=== PATIENT | female | born 1975 | race Caucasian/White ===

== ENCOUNTER 2023-09-05 12:15 | Emergency (ER) | payer OTHER, SELFPAY ==
--- NOTE | ~2023-09-05 | CT_ITS ---
EXAM: CT scan of the head and cervical spine. INDICATION: Reason for Exam fall w/ posterior head strike TECHNIQUE: A noncontrast CT scan was performed from the skull base to the vertex. A noncontrast CT scan of the cervical spine was performed from the base of the skull through T1 at 2.5 mm and 1.25 mm collimation. Coronal and sagittal reformats were obtained at the acquisition workstation. This CT examination was performed using dose optimization techniques as appropriate, variously including the following: *Automated exposure control *Adjustment of mA and/or kV according to patient size (this includes techniques or standardized protocols for targeted exams where dose is matched to indication/reason for exam; i.e. extremities or head) *Use of iterative reconstruction technique DLP: 698 and 373 mGy-cm COMPARISON: None FINDINGS: Head: There is no evidence of acute intracranial hemorrhage or territorial infarction. Ingram-white matter differentiation is preserved. No abnormal mass effect or midline shift. No extra-axial fluid collections. No abnormal attenuation is demonstrated within the brain parenchyma. The ventricles and sulcal spaces are proportional without hydrocephalus. Proportional prominence of the ventricles and sulcal spaces. No acute osseous or soft tissue abnormalities. The mastoid air cells and visualized portions of the paranasal sinuses are well aerated. Cervical Spine: The atlantooccipital and atlantoaxial articulations remain well aligned. Reversal of the normal cervical lordosis. Otherwise, there is anatomic alignment of the vertebral bodies and posterior elements. No evidence of acute fracture or subluxation. The vertebral body heights and disc spaces are notable for moderate disc space narrowing mid and lower cervical spine consistent with degenerative disc disease.. There is no prevertebral soft tissue swelling. The thyroid gland and remaining cervical soft tissues are normal in appearance. The lung apices demonstrate no abnormalities. CT/CT cervical spine wo IV con IMPRESSION: No acute intracranial pathology. No acute fracture subluxation cervical spine.
--- NOTE | ~2023-09-05 | XR_ITS ---
History: Pain status post fall. Exams: Left knee 2 views right knee 2 views lumbosacral spine 3 views right elbow 3 views right humerus 3 views FINDINGS: Right upper extremity shoulder and elbow: No deformity or dislocation. Joint spaces preserved. No elbow effusion. Radial head and neck intact. Bilateral knee imaging demonstrates no effusion. Joint spaces preserved. No deformity. Lumbosacral spine imaging images mild scoliosis convex left. No focal lesion or fracture. Minor endplate spurring consistent with early degenerative disc disease. XR/XR elbow RT 2V IMPRESSION: No fracture or dislocation. Mild degenerative disc disease in the lumbar spine.
--- NOTE | ~2023-09-05 | XR_ITS ---
History: Pain status post fall. Exams: Left knee 2 views right knee 2 views lumbosacral spine 3 views right elbow 3 views right humerus 3 views FINDINGS: Right upper extremity shoulder and elbow: No deformity or dislocation. Joint spaces preserved. No elbow effusion. Radial head and neck intact. Bilateral knee imaging demonstrates no effusion. Joint spaces preserved. No deformity. Lumbosacral spine imaging images mild scoliosis convex left. No focal lesion or fracture. Minor endplate spurring consistent with early degenerative disc disease. XR/XR humerus RT IMPRESSION: No fracture or dislocation. Mild degenerative disc disease in the lumbar spine.
--- NOTE | ~2023-09-05 | XR_ITS ---
History: Pain status post fall. Exams: Left knee 2 views right knee 2 views lumbosacral spine 3 views right elbow 3 views right humerus 3 views FINDINGS: Right upper extremity shoulder and elbow: No deformity or dislocation. Joint spaces preserved. No elbow effusion. Radial head and neck intact. Bilateral knee imaging demonstrates no effusion. Joint spaces preserved. No deformity. Lumbosacral spine imaging images mild scoliosis convex left. No focal lesion or fracture. Minor endplate spurring consistent with early degenerative disc disease. XR/XR knee LT 2V IMPRESSION: No fracture or dislocation. Mild degenerative disc disease in the lumbar spine.
--- NOTE | ~2023-09-05 | XR_ITS ---
History: Pain status post fall. Exams: Left knee 2 views right knee 2 views lumbosacral spine 3 views right elbow 3 views right humerus 3 views FINDINGS: Right upper extremity shoulder and elbow: No deformity or dislocation. Joint spaces preserved. No elbow effusion. Radial head and neck intact. Bilateral knee imaging demonstrates no effusion. Joint spaces preserved. No deformity. Lumbosacral spine imaging images mild scoliosis convex left. No focal lesion or fracture. Minor endplate spurring consistent with early degenerative disc disease. XR/XR lumbar spine 2-3V IMPRESSION: No fracture or dislocation. Mild degenerative disc disease in the lumbar spine.
--- NOTE | ~2023-09-05 | XR_ITS ---
History: Pain status post fall. Exams: Left knee 2 views right knee 2 views lumbosacral spine 3 views right elbow 3 views right humerus 3 views FINDINGS: Right upper extremity shoulder and elbow: No deformity or dislocation. Joint spaces preserved. No elbow effusion. Radial head and neck intact. Bilateral knee imaging demonstrates no effusion. Joint spaces preserved. No deformity. Lumbosacral spine imaging images mild scoliosis convex left. No focal lesion or fracture. Minor endplate spurring consistent with early degenerative disc disease. XR/XR knee RT 2V IMPRESSION: No fracture or dislocation. Mild degenerative disc disease in the lumbar spine.
[2023-09-05 12:30] VITALS: BP 133/86; BP 138/89; PULSE 79; PULSE 80; RESP 14; TEMP 36.6; O2SAT 100; BMI 26.9
[2023-09-05] MEDS: Acetaminophen 325 MG TABLET 650 MG PO (12:38)
--- NOTE | 2023-09-05 12:39 | ED_ITS ---
HPI - Fall General Chief Complaint: Fall Stated Complaint: MECHANICAL FALL Time Seen by Provider: 09/05/23 14:33 Source: patient and EMS Mode of arrival: EMS Limitations: no limitations History of Present Illness HPI Narrative: 47-year-old female with a history of hypertension presents the ER with multiple complaints after a slip and fall walking into work on Wednesday. Patient reports she fell backwards hitting her head with a positive loss of consciousness. Patient denies any AC therapy use. Patient reports she has a headache today, neck pain, bilateral knee pain, right elbow pain, back pain since injury. she also has some photophobia but denies any blurry vision. No nausea, vomiting, chest pain, shortness of breath, urinary changes, diarrhea, numbness/ tingling /weakness in the upper lower extremities, dizziness. Related Data Previous Rx's Medication Instructions Recorded cyclobenzaprine 10 mg tablet 10 mg PO TID PRN muscle spasm #15 09/05/23 tabs ibuprofen 600 mg tablet 600 mg PO Q6H PRN pain #30 tabs 09/05/23 lidocaine 5 % topical patch 1 patch topical DAILY #15 ea 09/05/23 (Lidoderm) Allergies Allergy/AdvReac Type Severity Reaction Status Date / Time prednisone [PREDNISONE] Allergy Severe ORAL Unverified 04/04/20 17:52 FORM-VOMITING Review of Systems Review of Systems: Yes all other systems are reviewed and are negative Constitutional: Constitutional: Reports no additional constitutional complaints, Denies body ache(s), Denies chills, Denies fever(s), Reports headache(s) and Denies weakness Eyes: Eyes: Reports no additional eye complaints, Denies change in vision and Reports photophobia ENT: Reports system reviewed and no additional complaints, except as documented, Denies dizziness, Reports headache(s), Denies nasal congestion, Denies nasal discharge and Reports neck pain Cardiovascular: Cardiovascular: Reports no additional cardiovascular complaints, Denies chest pain, Denies leg edema and Denies dyspnea Respiratory: Respiratory: Reports no additional respiratory complaints, Denies cough and Denies dyspnea Gastrointestinal: Gastrointestinal: Reports no additional gastrointestinal complaints, Denies abdominal pain, Denies diarrhea, Reports nausea and Denies vomiting Genitourinary: Genitourinary: Reports no additional female genitourinary complaints and Denies urinary incontinence Musculoskeletal: Musculoskeletal: Reports no additional musculoskeletal complaints, Reports back pain, Reports arthralgias, Denies joint swelling, Reports neck pain, Denies numbness and Denies tingling Integumentary/Breasts: Skin/Breast: Reports system reviewed and no additional complaints, except as docu and Denies rash Neurologic: Reports system reviewed and no additional complaints, except as do cumented, Denies Abnormal speech present, Denies dizziness, Reports headache(s), Denies numbness, Denies tingling and Denies weakness [facility] Past Medical History Attestation statement: The following information was validated with the patient. Source: old records reviewed and nursing notes reviewed Social History Social History Smoked in Last 30 Days: Yes Use of substances other than those prescribed or required for medical reasons: No Advance Directives: No Advance Directives Information Provided: No Patient : No Physical Exam Vital Signs: Vital Signs: Last Vital Signs Temp 96.8 F 09/05/23 14:44 Pulse 76 09/05/23 14:44 Resp 17 09/05/23 14:44 BP 115/72 09/05/23 14:44 Pulse Ox 100 09/05/23 14:44 O2 Del Method Room Air 09/05/23 14:44 BMI result Body Mass Index 26.9 Const: General: cooperative, healthy appearing, comfortable and no acute distress Orientation/consciousness: patient oriented x3 Limitations: no limitations HEENT: Other: no hemotympanum Head: Yes normal to inspection, No Lee's sign and No raccoon eyes Ears: hearing grossly normal bilaterally and TM's normal bilaterally General nose exam: Normal external nose present Face and sinus: Yes normal facial exam Mouth: Normal oral and palatal mucosa present Throat: Yes posterior oropharynx normal, Yes tonsils normal and Yes uvula midline Eyes: General: appearance normal, both eyes and all related structures Pupils: Equal, round and reactive pupils present Direct Ophthalmoscopy: photophobia Neck: Other: +cervical midline tenderness with no neri p offs or deformities Neck: Yes normal visual inspection Chest: Chest palpation & inspection: normal inspection of the chest Resp: Effort & Inspection: normal respiratory effort Auscultation: clear to auscultation bilaterally Cardio: Rate: regular rate Rhythm: regular rhythm Peripheral pulses: Peripheral pulses 2+ throughout GI: Inspection: Yes normal to inspection Palpation (GI): Soft to palpation and nontender Auscultation: normal bowel sounds Back/Spine/Pelvis: Other: TTP to lumbar mid spine with no step offs or deformities and left buttocks Thoracic/Lumbar Spine: thoracic and lumbar spine normal to inspection Skin: General skin exam: no rashes or lesions noted Neuro: General: patient oriented x3, moves all extremities, no focal motor deficits and normal sensation to monofilament Cranial nerves: Yes CN's II-XII intact bilaterally, Yes Equal, round and reactive pupils present, Yes Bilaterally intact EOM present, Yes Nystagmus not present, Yes Normal facial strength present and Yes Midline tongue present Cognition (Neuro): normal cognition Speech: No Abnormal speech present Gait exam (Neuro): Normal gait present Motor exam (neuro): 5/5 motor strength present throughout Sensory Exam: Normal double simultaneous stimulation for sensation Extrem: Other: Small area of ecchymosis noted over right lateral elbow with full range of motion both passively/actively. CMS intact distally. TTP bilateral anterior knees with FROM. CMS intact distally. General: Yes normal to inspection Course Course Course Narrative: RME:? 47 yo female w/ hx of HTN here vai EMS for eval of headache, neck pain, right elbow pain, and b/l knee pain s/p mechanical fall 2d ago. reports slipping backward on ice in front of her work, hitting the back of her head. fall was unwitnessed. +LOC. no thinners. reports being on the ground for only a few minutes before she was able to stand and ambulate herself. 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 Sent home and has been home for 2 days. ambulating independently with pain to bilateral knees on bearing weight. Seen at urgent care this morning who called EMS to transport here. received zofran en route. imaging ordered. tylenol given Full HPI, ROS and PE to be performed by the primary ED provider. Reevaluation(s) Reevaluation #1: reviewed negative imaging with patient. She is up and ambulatory. Normal neuro exam with no focal deficits, tolerating p.o.. Reviewed head injury care at home. Reviewed worrisome signs and symptoms of when to return to the emergency room. Comfortable plan for discharge home. Medications Administered Discontinued Medications Generic Name Dose Route Start Last Admin Trade Name Freq PRN Reason Stop Dose Admin Acetaminophen 650 mg 09/05/23 12:35 09/05/23 12:38 Acetaminophen 325 Mg Tablet PO 09/05/23 12:36 650 mg ONCE ONE Administration Medical Decision Making Medical Decision Making MDM Narrative: 47-year-old female with a history of hypertension presents the ER with multiple complaints after a slip and fall walking into work on Wednesday. Patient reports she fell backwards hitting her head with a positive loss of consciousness. Patient denies any AC therapy use. Patient reports she has a headache today, neck pain, bilateral knee pain, right elbow pain, back pain since injury. she also has some photophobia but denies any blurry vision. No nausea, vomiting, chest pain, shortness of breath, urinary changes, diarrhea, numbness/ tingling /weakness in the upper lower extremities, dizziness. Normal neuro exam with no focal deficitis. Various orthopedic complaints with TTP/areas of ecchymosis with FROM of affected joints. Will check ct head/cervical spine, x-rays of bilateral knees/right elbow and lumbar spine. Differential Diagnosis Differential Diagnoses: The differential diagnosis associated with the presentation includes Contusion, fracture, dislocation, low concern for vascular injury Concussion, low suspicion for basilar skull fracture, intracranial hemorrhage Admission/Observation Consideration of admission/observation: Escalation of care including admission/observation considered patient with head strike with complaints of headache, photophobia with loss of consciousness with a negative CT of the head 2 days ago with low suspicion for intracranial hemorrhaging requiring additional imaging and or transfer for trauma consultation Independent Interpretation I performed an independent interpretation of an: Plain X-Ray and CT Scan Interpretation: I independently viewed the x-ray and the CT scan agree with the radiology report Radiology Impression Discussion of test interpretation with radiology: I have reviewed the radiologist's reading. Radiologist Impression: [address] [address] [address] Scan Report Signed Patient: Rodney Martinez MR#: [id number] : 1975 Acct:[id number] Age/Sex: 47 / F ADM Date: 09/05/23 Loc: HO.ED Attending Dr: Ordering Physician: Maribel Moore Date of Service: 09/05/23 Procedure(s): CT head/brain wo IV con Accession Number(s): [id number] cc: Maribel Moore~ EXAM: CT scan of the head and cervical spine. INDICATION: Reason for Exam fall w/ posterior head strike TECHNIQUE: A noncontrast CT scan was performed from the skull base to the vertex. A noncontrast CT scan of the cervical spine was performed from the base of the skull through T1 at 2.5 mm and 1.25 mm collimation. Coronal and sagittal reformats were obtained at the acquisition workstation. This CT examination was performed using dose optimization techniques as appropriate, variously including the following: *Automated exposure control *Adjustment of mA and/or kV according to patient size (this includes techniques or standardized protocols for targeted exams where dose is matched to indication/reason for exam; i.e. extremities or head) *Use of iterative reconstruction technique DLP: 698 and 373 mGy-cm COMPARISON: None FINDINGS: Head: There is no evidence of acute intracranial hemorrhage or territorial infarction. Ingram-white matter differentiation is preserved. No abnormal mass effect or midline shift. No extra-axial fluid collections. No abnormal attenuation is demonstrated within the brain parenchyma. The ventricles and sulcal spaces are proportional without hydrocephalus. Proportional prominence of the ventricles and sulcal spaces. No acute osseous or soft tissue abnormalities. The mastoid air cells and visualized portions of the paranasal sinuses are well aerated. Cervical Spine: The atlantooccipital and atlantoaxial articulations remain well aligned. Reversal of the normal cervical lordosis. Otherwise, there is anatomic alignment of the vertebral bodies and posterior elements. No evidence of acute fracture or subluxation. The vertebral body heights and disc spaces are notable for moderate disc space narrowing mid and lower cervical spine consistent with degenerative disc disease.. There is no prevertebral soft tissue swelling. The thyroid gland and remaining cervical soft tissues are normal in appearance. The lung apices demonstrate no abnormalities. CT/CT head/brain wo IV con IMPRESSION: No acute intracranial pathology. No acute fracture subluxation cervical spine. [address] [address] XRay Report Signed Patient: Rodney Martinez MR#: [id number] : 1975 Acct:[id number] Age/Sex: 47 / F ADM Date: 09/05/23 Loc: HO.ED Attending Dr: Ordering Physician: Maribel Moore Date of Service: 09/05/23 Procedure(s): XR elbow RT 2V Accession Number(s): [id number] cc: Maribel Moore~ History: Pain status post fall. Exams: Left knee 2 views right knee 2 views lumbosacral spine 3 views right elbow 3 views right humerus 3 views FINDINGS: Right upper extremity shoulder and elbow: No deformity or dislocation. Joint spaces preserved. No elbow effusion. Radial head and neck intact. Bilateral knee imaging demonstrates no effusion. Joint spaces preserved. No deformity. Lumbosacral spine imaging images mild scoliosis convex left. No focal lesion or fracture. Minor endplate spurring consistent with early degenerative disc disease. XR/XR elbow RT 2V IMPRESSION: No fracture or dislocation. Mild degenerative disc disease in the lumbar spine. Independent Historian Clinical information obtained from an independent historian. History obtained from or confirmed by: EMS Tests considered The following testing was considered but not selected: see discussion above Prescription Management I considered prescription management with: Pain Medication Chronic Conditions Patient?s care impacted by: Hypertension Discharge Plan Discharge Clinical Impression: Concussion without loss of consciousness, Cervical strain, Back contusion, Contusion of knee, left, Contusion of knee, right, Contusion of elbow, right Patient Disposition: Home, Self-Care Instructions: Cervical Strain (ED), Concussion (ED), Contusion in Adults (ED) Additional Instructions: your x-rays and CT scan are reassuring You likely have a concussion. Please limit screen time. Get plenty of brain rest. Take the medications as prescribed. Apply heat or ice to the affected area. Follow-up with primary care doctor for any continued symptoms. Prescriptions: New cyclobenzaprine 10 mg tablet 10 mg PO TID PRN (Reason: muscle spasm) Qty: 15 0RF ibuprofen 600 mg tablet 600 mg PO Q6H PRN (Reason: pain) Qty: 30 0RF lidocaine [Lidoderm] 5 % adhesive patch,medicated 1 patch topical DAILY Qty: 15 0RF Rx Instructions: leave on most painful area for up to 12 hrs Stand Alone Forms: Work/School Release Interventions: ED Discharge Assessment Last Done: 09/05/23 15:04 Discharge Date/Time: 09/05/23 15:04
[2023-09-05 14:44] VITALS: BP 115/72; PULSE 76; RESP 17; TEMP 36; O2SAT 100
== END 2023-09-05 15:04 | disposition home or self-care (01) ==
PROVIDERS: Emergency Provider Emergency Medicine; PCP Internal Medicine
DX: S06.0X0A Concussion without loss of consciousness, initial encounter (principal); S13.4XXA Sprain of ligaments of cervical spine, initial encounter; S80.02XA Contusion of left knee, initial encounter; S80.01XA Contusion of right knee, initial encounter; S50.02XA Contusion of left elbow, initial encounter; S50.01XA Contusion of right elbow, initial encounter; M54.2 Cervicalgia; R51.9 Headache, unspecified; W01.10XA Fall on same level from slipping, tripping and stumbling with subsequent striking against unspecified object, initial encounter; Y93.9 Activity, unspecified; Y92.9 Unspecified place or not applicable; Y99.0 Civilian activity done for income or pay
CPT/HCPCS: 70450; 72100; 72125; 73060; 73070; 73560; 99284

== ENCOUNTER 2024-08-05 21:48 | Emergency (ER) | payer OTHER, SELFPAY ==
[2024-08-05 22:07] VITALS: BP 150/90; PULSE 142; O2SAT 99
[2024-08-05 22:21] VITALS: BP 138/94; PULSE 104; RESP 18; TEMP 37.6; O2SAT 98; BMI 28.3
--- OUTSIDE RECORDS SUMMARY | 2024-08-05 22:22 | XMS_ITS | Continuity of Care Document ---
Author Name [facility] Organization [facility] Care Team Providers Care Senior Oracle Pl Sql Developer Name Role Phone [facility] Unavailable Unavailable Immunizations Combined list of available immunizations from the Department of Defense and Veterans Affairs facilities. Immunization Series Date Given Administered By Site Reaction Lot Number [id number] Drug Electroneurodiagnostic Technologist Status Comments Source COVID-19 ([employer]), MRNA, LNP-S, PF, 30 MCG/0.3 ML DOSE 2 2020 208 complet ed PFR; [id number]; [facility] [place] [facility] COVID-19 (PFIZER), MRNA, LNP-S, PF, 30 MCG/0.3 ML DOSE 1 2020 208 complet ed PFR; [id number]; [facility]
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
[2024-08-05] MEDS: LORazepam 1 MG TABLET 2 MG PO (23:01)
[2024-08-05 23:31] LABS: Basophils Percent Auto 0.4 % (0-2); Eosinophils Percent Auto 0.3 % (0-4); Hematocrit 37.2 % (37.0-47.0); Hemoglobin 12.9 g/dl (12.0-16.0); Imm Gran Abs Auto 0.03 X10*3/uL (0.00-0.03); Imm Gran Pct Auto 0.4 % (0.0-0.4); Lymphocytes Absolute Auto 1.6 X10*3/uL (1.2-4.9); Lymphocytes Percent Auto 19.8 % (20-40); MANUAL DIFF FLAG NO; Mean Corpuscular HGB Conc 34.7 g/dl (31.0-35.0); Mean Corpuscular Volume 83.6 fL (80.0-98.0); Mean Platelet Volume 8.6 fL (9.4-12.3); Monocytes Absolute Auto 0.4 X10*3/uL (0.1-1.2); Monocytes Percent Auto 4.4 % (2-11); Neutrophils Absolute Auto 5.9 x10*3/uL (2.0-8.3); Neutrophils Percent Auto 74.7 % (45-73); Platelet Count 188 X10*3/uL (160-400); Red Blood Count 4.45 X10*6/uL (4.20-5.50); Red Cell Distribution Width 14.6 % (11.0-16.0); White Blood Count 7.9 X10*3/uL (4.8-10.8)
[2024-08-05 23:48] LABS: Alanine Aminotransferase 28 U/L (0-31); Albumin Level 3.8 g/dL (3.5-5.0); Alkaline Phosphatase 119 U/L (39-117); Anion Gap 12 (12-20); Aspartate Amino Transferase 36 U/L (5-31); Bilirubin Direct < 0.2 mg/dL (0.0-0.5); Bilirubin Total 0.1 mg/dL (0.0-1.0); Blood Urea Nitrogen 7 mg/dL (9-16); Calcium 8.4 mg/dL (8.4-10.2); Carbon Dioxide 28 mmol/L (22-29); Chloride 98 mmol/L (96-108); Creatinine Clr Calc Pharmacy 78.2; Estimated Glomerular Filt Rate > 60; Ethanol 260 mg/dL; Glucose Random 144 mg/dL (60-115); Potassium 3.4 mmol/L (3.3-5.1); Sodium 135 mmol/L (135-145); Total Protein 7.2 g/dL (6.5-8.0)
--- NOTE | 2024-08-06 06:44 | PC.NURSE ---
meeting with care team at this time
[2024-08-06 07:19] LABS: Appearance Urine Clear; Color Urine Yellow; Glucose Urine UA Negative (Negative); Leukocyte Esterase Urine Negative (Negative); Nitrite Urine Negative (Negative); Urine Blood Negative (Negative); Urine Ketones Trace mg/dL (Negative); Urine Protein Negative (Neg-Trace)
[2024-08-06 07:20] LABS: UPreg QC Valid YES; Urine Pregnancy NEGATIVE (NEGATIVE)
[2024-08-06 07:21] VITALS: BP 118/82; PULSE 117; RESP 18; TEMP 36.4; O2SAT 98
[2024-08-06] MEDS: Omeprazole 20 MG CAPSULE.DR PO (07:22)
[2024-08-06] MEDS: Cyanocobalamin (Vitamin B-12) 1,000 MCG TABLET 1000 MCG PO (07:23)
[2024-08-06] MEDS: Metoprolol Succinate ER 50 MG TAB.ER.24H PO (07:23)
[2024-08-06] MEDS: hydroCHLOROthiazide 25 MG TABLET PO (07:23)
[2024-08-06 07:58] LABS: Amphetamine Screen Urine Not Detected (Not Detect); Barbiturates, Urine Not Detected (Not Detect); Benzodiazepines Screen Urine Not Detected (Not Detect); Buprenorphine Scr Not Detected (Not Detect); Cannabinoid Screen Urine Not Detected (Not Detect); Cocaine Screen Urine Not Detected (Not Detect); Fentanyl, urine Not Detected (Not Detect); Methadone Screen, Urine Not Detected (Not Detect); Opiate Screen Urine Not Detected (Not Detect); Oxycodone Screen Urine Not Detected (Not Detect); Phencyclidine Screen Urine Not Detected (Not Detect)
[2024-08-06 10:01] VITALS: BP 118/82; PULSE 110; RESP 18; TEMP 36.4; O2SAT 98
== END 2024-08-06 10:01 | disposition home or self-care (01) ==
PROVIDERS: Emergency Provider Emergency Medicine; PCP Internal Medicine
DX: F10.129 Alcohol abuse with intoxication, unspecified (principal); Y90.8 Blood alcohol level of 240 mg/100 ml or more; F29 Unspecified psychosis not due to a substance or known physiological condition; Z51.81 Encounter for therapeutic drug level monitoring; Z79.899 Other long term (current) drug therapy
CPT/HCPCS: 36415; 80048; 80076; 80307; 81003; 81025; 85025; 99284; S9485

== ENCOUNTER 2025-02-03 16:31 | Emergency (ER) | payer OTHER, SELFPAY ==
--- NOTE | ~2025-02-03 | XR_ITS ---
CLINICAL HISTORY: laceration 3 views left hand Comparison: None Findings: No fractures, subluxations or dislocations. No periostitis or bony destruction. Mild joint space narrowing of the interphalangeal joints. No marginal erosions or overhanging osteophytes. Ulnar styloid preserved. Osteopenia. No soft tissue defects or soft tissue gas. Carpal bones unremarkable. No radiopaque foreign body. Impression: 1. No acute osseous abnormalities. This document has been electronically signed by: Jonh Irving MD on 02/03/2025 17:25:19
[2025-02-03 16:38] VITALS: BP 150/76; PULSE 75; RESP 16; TEMP 36.6; O2SAT 100; BMI 27.6
--- NOTE | 2025-02-03 17:33 | ED.WOUNDLAC ---
HPI - Wound/Laceration General Chief Complaint: Wound/Laceration Stated Complaint: left hand lac Time Seen by Provider: 02/03/25 17:21 Source: patient Mode of arrival: ambulatory Limitations: no limitations History of Present Illness ED Provider: Desirae Santamaria PA-C HPI narrative: 49-year-old right-hand dominant female with medical history of hypertension presents to the ED after cutting her left hand with a knife after trying to open juice. Patient states her right hand is weak after elbow surgery done on 11/08 and was unable to control the knife while opening juice. Patient reports the knife was clean, states she has had her last tetanus shot 8 years ago. Related Data Home Medications ?Medication ?Instructions ?Recorded ?Confirmed cyanocobalamin (vitamin B-12) 1,000 mcg PO DAILY 08/06/24 08/06/24 1,000 mcg tablet ergocalciferol (vitamin D2) 1,250 1,250 mcg PO QWEEK 08/06/24 08/06/24 mcg (50,000 unit) capsule hydrochlorothiazide 25 mg tablet 25 mg PO DAILY 08/06/24 08/06/24 metoprolol succinate 50 mg 50 mg PO DAILY 08/06/24 08/06/24 tablet,extended release 24 hr pantoprazole 40 mg tablet,delayed 40 mg PO DAILY 08/06/24 08/06/24 release sertraline 50 mg tablet mg 08/06/24 Previous Rx's ?Medication ?Instructions ?Recorded cyclobenzaprine 10 mg tablet 10 mg PO TID PRN muscle spasm #15 09/05/23 tabs ibuprofen 600 mg tablet 600 mg PO Q6H PRN pain #30 tabs 09/05/23 lidocaine 5 % topical patch 1 patch topical DAILY #15 ea 09/05/23 (Lidoderm) Allergies Allergy/AdvReac Type Severity Reaction Status Date / Time amlodipine Allergy Swelling Verified 02/03/25 16:41 Review of Systems Review of Systems: CONST: Negative for fever, body aches and chills. HENT: Negative for neck pain/stiffness, headache, congestion, sore throat, swelling. EYES: Negative for discharge/pain or vision changes. RESP: Negative for cough/hemoptysis and shortness of breath. CV: Negative chest pain, difficulty breathing, palpitations. ABD: Negative pain, nausea, vomiting. : Negative increase frequency, dysuria, blood in urine or stool. MUSC: Negative for muscle aches, edema. SKIN: Negative rash, lesions/sores. POS laceration of L hand NEURO: Negative headache, dizziness, weakness. Yes all other systems are reviewed and are negative [facility] Social History Social History Advance Directives: No Advance Directives Information Provided: No Do you have a plan to hurt others: No Plan Physical Exam Vital Signs: Vital Signs: Last Vital Signs Temp 97.8 F 02/03/25 16:38 Pulse 75 02/03/25 16:38 Resp 16 02/03/25 16:38 BP 150/76 H 02/03/25 16:38 Pulse Ox 100 02/03/25 16:38 O2 Del Method Room Air 02/03/25 16:38 BMI result Body Mass Index 27.6 GENERAL APPEARANCE: ?AxOx4, generally well-appearing, no acute distress. HEENT: ?NC, AT. MMM. EOMI, clear conjunctiva, oropharynx clear. NECK: ?Supple without lymphadenopathy.? No stiffness or restricted ROM. HEART:? Normal rate and regular rhythm, normal S1/S1, no m/r/g LUNGS:? CTAB, moving air well. No crackles or wheezes are heard. EXTREMITIES: ?Without cyanosis, clubbing or edema. Left hand with approximate 1 in laceration of the intravenous area between thumb and index finger, light bleeding. Strength 5/5, radial pulses 2+, SILT NEUROLOGICAL: ?Grossly nonfocal. Alert and oriented, moving all 4 extremities. Observed to ambulate with normal gait. Skin: ?Warm and dry without any rash. Medications Administered Discontinued Medications Generic Name Dose Route Start Last Admin Trade Name Freq PRN Reason Stop Dose Admin Acetaminophen 975 mg 02/03/25 17:39 02/03/25 17:57 Acetaminophen 325 Mg Tablet PO 02/03/25 17:40 975 mg ONCE ONE Administration Lidocaine HCl 5 ml 02/03/25 17:39 02/03/25 18:00 Lidocaine Hcl 1 % Mpf 5 Ml Vial SUBCUT 02/03/25 17:40 5 ml ONCE ONE Administration Medical Decision Making Medical Decision Making MDM Narrative: 49-year-old right-hand dominant female with medical history of hypertension presents to the ED after cutting her left hand with a knife after trying to open juice. Patient states her right hand is weak after elbow surgery done on 11/08 and was unable to control the knife while opening juice. Patient reports the knife was clean, states she has had her last tetanus shot 8 years ago. VSS, in no acute distress, nontoxic appearing. Physical exam benign, lungs clear to auscultation bilaterally, cardiac exam with normal rate rhythm no murmurs/rubs/gallops. Left hand with approximate 1 in linear laceration of the intravenous area between thumb and index finger, light bleeding, no purulent drainage, no ecchymosis, no edema- less likely hematoma/cellulitis. Strength 5/5, radial pulses 2+, SILT, patient able to make full fist, opposition intact- less likley tendon involvement, no radicular symptoms. Patient requesting Tylenol for pain. Will medicate with 975 mg p.o. Tylenol. Patient requiring laceration repair. Differential Diagnosis Differential Diagnoses: The differential diagnosis associated with the presentation includes Laceration Hematoma Tendon involvement Cellulitis Admission/Observation Consideration of admission/observation: Escalation of care including admission/observation considered External Record Review External record reviewed: Inpatient record, Office record and Outpatient record Chronic Conditions Patient?s care impacted by: Hypertension Procedures Laceration Laceration 1: Site: hand (L hand webbing between thumb and index finger ) Side (If applicable): left Size (cm): 2 Description: linear Depth: simple, single layer Local Anesthetic: lidocaine 1% Amount of anesthesia used (mL): 5 Pre-repair: irrigated extensively and deep structures intact Skin layer closed with: nylon Size (cm): 5-0 Number of sutures: 4 Discharge Plan Discharge Clinical Impression: Laceration Patient Disposition: Home, Self-Care Additional Instructions: You were evaluated in the emergency department after sustaining laceration to the left hand after cutting juice open with a knife. X-ray imaging did not reveal any retained foreign body. You were given 975 mg of Tylenol in the department for pain. Your laceration was irrigated with sterile saline and iodine, the wound was injected with lidocaine for numbing. I placed 4 stitches in the webbing of your left thumb and index finger. Please follow up with your PCP to ensure your improvement. Please keep the dressing on the hand for 24 hours. Do not get wet or swim in pools, or fresh bodies of water for the next 7 days. You can come back to the ED or to urgent care in 10 days for removal of the sutures. Please return to the ED if you experience fever over 100.4, drainage from the wound, bleeding from the wound, increased pain around the wound, pain or difficulty moving the left hand. Or any other new/worsening/concerning symptoms. Prescriptions: No Action metoprolol succinate 50 mg tablet extended release 24 hr 50 mg PO DAILY cyanocobalamin (vitamin B-12) 1,000 mcg tablet 1,000 mcg PO DAILY pantoprazole 40 mg tablet,delayed release (DR/EC) 40 mg PO DAILY hydrochlorothiazide 25 mg tablet 25 mg PO DAILY ergocalciferol (vitamin D2) 1,250 mcg (50,000 unit) capsule 1,250 mcg PO QWEEK sertraline 50 mg tablet cyclobenzaprine 10 mg tablet 10 mg PO TID PRN (Reason: muscle spasm) Qty: 15 0RF ibuprofen 600 mg tablet 600 mg PO Q6H PRN (Reason: pain) Qty: 30 0RF lidocaine [Lidoderm] 5 % adhesive patch,medicated 1 patch topical DAILY Qty: 15 0RF Rx Instructions: leave on most painful area for up to 12 hrs Print Language: Maldivian
[2025-02-03] MEDS: Lidocaine HCl 1 % MPF 5 ML VIAL SUBCUT (18:00)
[2025-02-03 18:48] VITALS: BP 150/76; PULSE 75; RESP 16; TEMP 36.6; O2SAT 100
== END 2025-02-03 18:48 | disposition home or self-care (01) ==
PROVIDERS: Emergency Provider Emergency Medicine; PCP Internal Medicine
DX: S61.412A Laceration without foreign body of left hand, initial encounter (principal); W26.0XXA Contact with knife, initial encounter; M79.642 Pain in left hand; Y93.9 Activity, unspecified; Y92.9 Unspecified place or not applicable; Y99.9 Unspecified external cause status; I10 Essential (primary) hypertension; Z79.899 Other long term (current) drug therapy
CPT/HCPCS: 12001; 73120; 99284; J2003

== ENCOUNTER → 2025-02-03 16:50 | Outpatient (BNV) | payer OTHER, SELFPAY | PROVIDERS: Emergency Provider Emergency Medicine; PCP Internal Medicine; Visit Provider Radiology Diagnostic Radiology | DX: S61.412A Laceration without foreign body of left hand, initial encounter (principal) | CPT/HCPCS: 73120 ==

== ENCOUNTER 2025-02-13 19:08 | Emergency (ER) | payer OTHER, SELFPAY ==
--- OUTSIDE RECORDS SUMMARY | 2020-10-28 10:15 | XMS_ITS | Continuity of Care Document ---
Author Name [facility] Organization [facility] Care Team Providers Care Business Partner Name Role Phone [facility] Unavailable Unavailable Immunizations Combined list of available immunizations from the Department of Defense and Veterans Affairs facilities. Immunization Series Date Given Administered By Site Reaction Lot Number [id number] Drug Jackaroo Status Comments Source COVID-19 ([employer]right[employer]), MRNA, LNP-S, PF, 30 MCG/0.3 ML DOSE 2 2020 208 complet ed PFR; [id number]; [facility] COVID-19 (PFIZER), MRNA, LNP-S, PF, 30 MCG/0.3 ML DOSE 1 2020 208 complet ed PFR; [id number]; [facility]
[2025-02-13 19:44] VITALS: BP 111/71; PULSE 77; RESP 18; TEMP 36.8; O2SAT 97; BMI 25.9
--- NOTE | 2025-02-13 19:52 | ED.WOUNDLAC ---
HPI - Wound/Laceration General Chief Complaint: Skin/Abscess/Foreign Body Stated Complaint: Suture removal Time Seen by Provider: 02/13/25 19:52 Source: patient Mode of arrival: ambulatory Limitations: no limitations History of Present Illness ED Provider: Zenia Wright NP HPI narrative: Patient is a 49-year-old female who presents emergency department for suture removal from the left hand after an accidental laceration 10 days ago. Denies fevers, chills, pus-like drainage, redness, swelling. Related Data Home Medications ?Medication ?Instructions ?Recorded ?Confirmed cyanocobalamin (vitamin B-12) 1,000 mcg PO DAILY 08/06/24 08/06/24 1,000 mcg tablet ergocalciferol (vitamin D2) 1,250 1,250 mcg PO QWEEK 08/06/24 08/06/24 mcg (50,000 unit) capsule hydrochlorothiazide 25 mg tablet 25 mg PO DAILY 08/06/24 08/06/24 metoprolol succinate 50 mg 50 mg PO DAILY 08/06/24 08/06/24 tablet,extended release 24 hr pantoprazole 40 mg tablet,delayed 40 mg PO DAILY 08/06/24 08/06/24 release sertraline 50 mg tablet mg 08/06/24 Previous Rx's ?Medication ?Instructions ?Recorded cyclobenzaprine 10 mg tablet 10 mg PO TID PRN muscle spasm #15 09/05/23 tabs ibuprofen 600 mg tablet 600 mg PO Q6H PRN pain #30 tabs 09/05/23 lidocaine 5 % topical patch 1 patch topical DAILY #15 ea 09/05/23 (Lidoderm) Allergies Allergy/AdvReac Type Severity Reaction Status Date / Time amlodipine Allergy Swelling Verified 02/13/25 19:52 Review of Systems Review of Systems: Yes all other systems are reviewed and are negative PMFSH Past Medical History Attestation statement: The following information was validated with the patient. Source: old records reviewed Social History Social History Advance Directives: No Advance Directives Information Provided: No Physical Exam Exam: Exam: Appearance: Alert.?Oriented to person, place and time. No acute distress.?Normal affect. CVS: Heart sounds normal. Normal heart rate and rhythm.? Pulses normal.?? Respiratory: No respiratory distress.? Lung sounds clear to auscultation bilaterally??? Skin: Skin warm and dry.? Normal skin color.? Healed laceration to the interdigital space between left thumb and 2nd digit. No erythema. No warmth. No swelling. Full range of motion to the digits. Neuro: Moves all extremities spontaneously. Sensation intact bilaterally.Ambulates with normal steady gait. Vital Signs: Vital Signs: Last Vital Signs Temp 98.2 F 02/13/25 20:17 Pulse 77 02/13/25 20:17 Resp 18 02/13/25 20:17 BP 111/71 02/13/25 20:17 Pulse Ox 97 02/13/25 20:17 O2 Del Method Room Air 02/13/25 20:17 BMI result Body Mass Index 25.9 Medical Decision Making Medical Decision Making MDM Narrative: Patient is a 49-year-old female who presents emergency department for suture removal as per HPI. Four sutures were removed without complication. No evidence of cellulitis. Full range of motion to the hand/digits. Stable for discharge home External Record Review External record reviewed: Outpatient record Discharge Plan Discharge Clinical Impression: Laceration of hand Qualifiers: Laterality: left Patient Disposition: Home, Self-Care Additional Instructions: Sutures were removed today without complication. You may wash the hand with warm water and mild non scented soap. As discussed, part of the dried skin surrounding this area will come off eventually on its own. Utilize a moisturizer. Prescriptions: No Action metoprolol succinate 50 mg tablet extended release 24 hr 50 mg PO DAILY cyanocobalamin (vitamin B-12) 1,000 mcg tablet 1,000 mcg PO DAILY pantoprazole 40 mg tablet,delayed release (DR/EC) 40 mg PO DAILY hydrochlorothiazide 25 mg tablet 25 mg PO DAILY ergocalciferol (vitamin D2) 1,250 mcg (50,000 unit) capsule 1,250 mcg PO QWEEK sertraline 50 mg tablet cyclobenzaprine 10 mg tablet 10 mg PO TID PRN (Reason: muscle spasm) Qty: 15 0RF ibuprofen 600 mg tablet 600 mg PO Q6H PRN (Reason: pain) Qty: 30 0RF lidocaine [Lidoderm] 5 % adhesive patch,medicated 1 patch topical DAILY Qty: 15 0RF Rx Instructions: leave on most painful area for up to 12 hrs Referrals: José Manuel Whitman III, MD [Primary Care Provider, Medical] Interventions: ED Discharge Assessment Last Done: 02/13/25 20:17 Discharge Date/Time: 02/13/25 20:19 Print Language: Thai
[2025-02-13 20:17] VITALS: BP 111/71; PULSE 77; RESP 18; TEMP 36.8; O2SAT 97
== END 2025-02-13 20:19 | disposition home or self-care (01) ==
PROVIDERS: Emergency Provider Internal Medicine; PCP Internal Medicine
DX: Z48.02 Encounter for removal of sutures (principal); S61.412D Laceration without foreign body of left hand, subsequent encounter; W45.8XXD Other foreign body or object entering through skin, subsequent encounter
CPT/HCPCS: 99282

== ENCOUNTER 2025-06-23 17:36 | Emergency (ER) | payer OTHER, SELFPAY ==
[2025-06-23 17:51] VITALS: PULSE 103; PULSE 93; RESP 20; TEMP 36.1; O2SAT 100; O2SAT 97; BMI 24.3
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
--- NOTE | 2025-06-23 18:02 | ED.ALCOHOL ---
HPI - Alcohol General Chief Complaint: ETOH/Substance Use Stated Complaint: SLUMPED IN CAR,?SUBSTANCE USE PER EMS Time Seen by Provider: 06/23/25 17:54 History of Present Illness HPI narrative: Patient is a 49-year-old female found slumped over in the car by PD. Patient was breathing. Altered. With a strong smell of alcohol. Patient denies having any significant past medical history she was able to provide me with her name. She denies anything hurting her. She is not suicidal not homicidal. Related Data Home Medications ?Medication ?Instructions ?Recorded ?Confirmed cyanocobalamin (vitamin B-12) 1,000 mcg PO DAILY 08/06/24 08/06/24 1,000 mcg tablet ergocalciferol (vitamin D2) 1,250 1,250 mcg PO QWEEK 08/06/24 08/06/24 mcg (50,000 unit) capsule hydrochlorothiazide 25 mg tablet 25 mg PO DAILY 08/06/24 08/06/24 metoprolol succinate 50 mg 50 mg PO DAILY 08/06/24 08/06/24 tablet,extended release 24 hr pantoprazole 40 mg tablet,delayed 40 mg PO DAILY 08/06/24 08/06/24 release sertraline 50 mg tablet mg 08/06/24 Previous Rx's ?Medication ?Instructions ?Recorded cyclobenzaprine 10 mg tablet 10 mg PO TID PRN muscle spasm #15 09/05/23 tabs ibuprofen 600 mg tablet 600 mg PO Q6H PRN pain #30 tabs 09/05/23 lidocaine 5 % topical patch 1 patch topical DAILY #15 ea 09/05/23 (Lidoderm) Allergies Allergy/AdvReac Type Severity Reaction Status Date / Time amlodipine Allergy Swelling Verified 06/23/25 17:58 Review of Systems Review of Systems: Unable to provide full review of systems due to patient's gross altered mental status [facility] Social History Social History Advance Directives: No Advance Directives Information Provided: No Physical Exam ED Exam Exam: Appearance: Alert. oriented to self only No acute distress. Eyes: Pupils equal, round and reactive to light. ENT: Pharynx normal. Neck: Normal inspection. Neck supple. No lymph nodes noted. No crepitus CVS: Normal heart rate and rhythm. Pulses normal. Normal S1 and S2 Respiratory: No respiratory distress. Breath sounds normal. No Wheezing. No rales Abdomen: Soft and nontender. No rigidity. No distention. good BS x4 Skin: Skin warm and dry. Normal skin color. Normal skin turgor. Extremities: No lower extremity edema. Neurovascular intact to all extremities. No Lacerations. No Rash Neuro: Oriented to self only. speech slightly slurred moving all extremity Vital Signs: Vital Signs - 24 hr 06/23/25 17:51 06/23/25 19:24 Temperature 96.9 F 98.1 F Pulse Rate 103 H 91 Respiratory Rate 20 16 Blood Pressure 108/68 Pulse Oximetry 100 99 Oxygen Delivery Method Room Air Room Air BMI result Body Mass Index 24.3 Medical Decision Making Medical Decision Making [facility] Narrative: Patient monitored in the emergency department. No acute distress. Patient's K after repletion is 3.3. Family at bedside. Patient is not suicidal homicidal family will monitor patient on home. In no distress. No trauma. Differential Diagnosis Differential Diagnoses: The differential diagnosis associated with the presentation includes Alcohol intoxication, hypoglycemia, electrolyte disturbance Admission/Observation Consideration of admission/observation: Escalation of care including admission/observation considered Considered admission but family present ETOH positive likely the cause of patient's symptoms Lab Data [facility] Lab Attestation statement: I reviewed the patient's lab results. 06/23/25 18:09 06/23/25 20:52 Labs: Lab Results 06/23/25 06/23/25 06/23/25 Range/Units 18:09 19:04 20:52 WBC 7.9 (4.8-10.8) X10*3/uL RBC 4.62 (4.20-5.50) X10*6/uL Hgb 13.3 (12.0-16.0) g/dl Hct 37.8 (37.0-47.0) % MCV 81.8 (80.0-98.0) fL MCH 28.8 (27.0-33.0) pg MCHC 35.2 H (31.0-35.0) g/dl RDW 13.2 (11.0-16.0) % Plt Count 222 (160-400) X10*3/uL MPV 9.6 (9.4-12.3) fL Immature Gran % (Auto) 0.1 (0.0-0.4) % Neut % (Auto) 57.0 (45-73) % Lymph % (Auto) 35.9 (20-40) % [place] % (Auto) 5.2 (2-11) % Eos % (Auto) 1.3 (0-4) % Baso % (Auto) 0.5 (0-2) % Lymph # (Auto) 2.9 (1.2-4.9) X10*3/uL [place] # (Auto) 0.4 (0.1-1.2) X10*3/uL Eos # (Auto) 0.1 (0.0-0.4) X10*3/uL Baso # (Auto) 0.0 (0.0-0.2) X10*3/uL Abs Immat Gran (auto) 0.01 (0.00-0.03) X10*3/uL Absolute Neuts (auto) 4.5 (2.0-8.3) x10*3/uL Absolute Nucleated RBC 0.000 (0.0-0.012) X10*3/uL Nucleated RBC % (auto) 0.0 (0.0-0.2) /100WBC Sodium 136 138 (135-145) mmol/L Potassium 2.7 L* D 3.3 D (3.3-5.1) mmol/L Chloride 97 101 (96-108) mmol/L Carbon Dioxide 26 27 (22-29) mmol/L Anion Gap 16 13 (12-20) BUN 6 L 6 L (9-16) mg/dL Creatinine 0.75 0.70 (0.5-1.4) mg/dL Estim Creat Clear Calc 83.0 89.0 Estimated GFR > 60 > 60 Random Glucose 149 H 150 H (60-115) mg/dL Calcium 9.2 D 8.4 D (8.4-10.2) mg/dL Magnesium 2.3 (1.6-2.6) mg/dL Total Bilirubin 0.1 (0.0-1.0) mg/dL AST 40 H (5-31) U/L ALT 49 H (0-31) U/L Alkaline Phosphatase 149 H (39-117) U/L Total Protein 7.6 (6.5-8.0) g/dL Albumin 4.3 (3.5-5.0) g/dL Urine Color Yellow Urine Appearance Clear Urine pH 6.5 (5.0-9.0) Ur Specific [place] <= 1.005 (1.005-1.025) Urine Protein Negative (Neg-Trace) mg/dL Urine Glucose (UA) Negative (Negative) mg/dL Urine Ketones Trace (Negative) mg/dL Urine Blood Negative (Negative) Urine Nitrite Negative (Negative) Ur Leukocyte Esterase Moderate (2+) H (Negative) Urine RBC 0-2 (0-2) /HPF Urine WBC 21-50 H (0-5) /HPF Ur Squamous Epith Cells 11-20 (0-2) /HPF Urine Bacteria None Seen (None Seen) Hyaline Casts 0-2 (0-2) /LPF Urine Opiates Screen Not Detected (Not Detect) Ur Buprenorphine Scrn Not Detected (Not Detect) ng/mL Ur Oxycodone Screen Not Detected (Not Detect) ng/mL Urine Methadone Screen Not Detected (Not Detect) ng/mL Urine Fentanyl Screen Not Detected (Not Detect) Ur Barbiturates Screen Not Detected (Not Detect) Ur Phencyclidine Scrn Not Detected (Not Detect) Ur Amphetamines Screen Not Detected (Not Detect) U Benzodiazepines Scrn Not Detected (Not Detect) Urine Cocaine Screen Not Detected (Not Detect) U Marijuana (THC) Screen Not Detected (Not Detect) Ethyl Alcohol 379 H* mg/dL Independent Historian Clinical information obtained from an independent historian. History obtained from or confirmed by: Spouse Chronic Conditions Alcohol intoxication Social Determinants Patient?s care significantly limited by Social Determinants of Health including: Alcoholism and drug addiction in family Medications Administered Discontinued Medications Generic Name Dose Route Start Last Admin Trade Name Freq PRN Reason Stop Dose Admin Sodium Chloride 1,000 mls @ 999 mls/hr 06/23/25 18:15 06/23/25 20:57 Ns IV 06/23/25 19:15 Infused .Q1H1M ARIADNA Infusion Potassium Chloride 10 meq in 100 mls @ 100 mls/hr 06/23/25 18:55 06/23/25 20:39 Potassium Chloride/H20 IV 06/23/25 19:54 Infused ONCE ONE Infusion Potassium Chloride 40 meq 06/23/25 18:55 06/23/25 19:10 Potassium Chloride Packet 20 Meq Packet PO 06/23/25 18:56 40 meq ONCE ONE Administration Discharge Plan Discharge Clinical Impression: Alcoholic intoxication Patient Disposition: Home, Self-Care Instructions: Abuse of Alcohol (DC) Prescriptions: No Action metoprolol succinate 50 mg tablet extended release 24 hr 50 mg PO DAILY cyanocobalamin (vitamin B-12) 1,000 mcg tablet 1,000 mcg PO DAILY pantoprazole 40 mg tablet,delayed release (DR/EC) 40 mg PO DAILY hydrochlorothiazide 25 mg tablet 25 mg PO DAILY ergocalciferol (vitamin D2) 1,250 mcg (50,000 unit) capsule 1,250 mcg PO QWEEK sertraline 50 mg tablet cyclobenzaprine 10 mg tablet 10 mg PO TID PRN (Reason: muscle spasm) Qty: 15 0RF ibuprofen 600 mg tablet 600 mg PO Q6H PRN (Reason: pain) Qty: 30 0RF lidocaine [Lidoderm] 5 % adhesive patch,medicated 1 patch topical DAILY Qty: 15 0RF Rx Instructions: leave on most painful area for up to 12 hrs Referrals: José Manuel Whitman III, MD [Primary Care Provider, Medical] - 06/26/25 Print Language: Tongan
--- NOTE | 2025-06-23 18:12 | PC.NURSE ---
#22 placed in the right hand, 1LNS running per MAR
[2025-06-23 18:15] LABS: MANUAL DIFF FLAG NO
[2025-06-23 18:16] LABS: Hematocrit 37.8 % (37.0-47.0); Hemoglobin 13.3 g/dl (12.0-16.0); Imm Gran Abs Auto 0.01 X10*3/uL (0.00-0.03); Imm Gran Pct Auto 0.1 % (0.0-0.4); Lymphocytes Absolute Auto 2.9 X10*3/uL (1.2-4.9); Mean Corpuscular HGB Conc 35.2 g/dl (31.0-35.0); Mean Corpuscular Hemoglobin 28.8 pg (27.0-33.0); Mean Corpuscular Volume 81.8 fL (80.0-98.0); NRBC Abs Auto 0.000 X10*3/uL (0.0-0.012); NRBC Pct Auto 0.0 /100WBC (0.0-0.2); Platelet Count 222 X10*3/uL (160-400); Red Blood Count 4.62 X10*6/uL (4.20-5.50); White Blood Count 7.9 X10*3/uL (4.8-10.8)
[2025-06-23 18:33] LABS: Alanine Aminotransferase 49 U/L (0-31); Albumin Level 4.3 g/dL (3.5-5.0); Alkaline Phosphatase 149 U/L (39-117); Anion Gap 16 (12-20); Aspartate Amino Transferase 40 U/L (5-31); Blood Urea Nitrogen 6 mg/dL (9-16); Calcium 9.2 mg/dL (8.4-10.2); Carbon Dioxide 26 mmol/L (22-29); Chloride 97 mmol/L (96-108); Creatinine Clr Calc Pharmacy 83.0; Estimated Glomerular Filt Rate > 60; Potassium 2.7 mmol/L (3.3-5.1); Sodium 136 mmol/L (135-145); Total Protein 7.6 g/dL (6.5-8.0)
--- NOTE | 2025-06-23 18:33 | ECG_ITS ---
Test Reason : LOW POTASSIUM Blood Pressure : */* mmHG Vent. Rate : 93 BPM Atrial Rate : 93 BPM P-R Int : 178 ms QRS Dur : 98 ms QT Int : 372 ms P-R-T Axes : 49 -6 30 degrees QTcB Int : 462 ms Normal sinus rhythm Nonspecific ST abnormality Abnormal ECG No previous ECGs available Referred By: Chrissie Branham Electronically Signed By: ALY CHANDRA
[2025-06-23] MEDS: Potassium Chloride/H20 10 MEQ/100 ML PIGGYBACK 100 MEQ IV (19:10)
[2025-06-23] MEDS: Potassium Chloride Packet 20 MEQ PACKET 40 MEQ PO (19:10)
[2025-06-23 19:13] LABS: Appearance Urine Clear; Glucose Urine UA Negative (Negative); PH 6.5 (5.0-9.0); Specific Gravity - Urine <= 1.005 (1.005-1.025); UMIC TRIGGER UACC YES
[2025-06-23 19:21] LABS: Cannabinoid Screen Urine Not Detected (Not Detect)
[2025-06-23 19:22] LABS: UACC Culture Trigger YES
[2025-06-23 19:23] LABS: Magnesium 2.3 mg/dL (1.6-2.6)
[2025-06-23 19:24] VITALS: BP 108/68; PULSE 91; RESP 16; TEMP 36.7; O2SAT 99
[2025-06-23 21:09] LABS: Anion Gap 13 (12-20); Blood Urea Nitrogen 6 mg/dL (9-16); Calcium 8.4 mg/dL (8.4-10.2); Carbon Dioxide 27 mmol/L (22-29); Chloride 101 mmol/L (96-108); Creatinine Clr Calc Pharmacy 89.0; Estimated Glomerular Filt Rate > 60; Potassium 3.3 mmol/L (3.3-5.1); Sodium 138 mmol/L (135-145)
--- NOTE | 2025-06-23 21:26 | PC.NURSE ---
MD Isidro aware of potassium at this time
--- NOTE | 2025-06-23 21:36 | PC.NURSE ---
pt awake and alert at this time, sober ride at bedside, pt understands dc instructions, denies si/hi and vss
[2025-06-23 21:38] VITALS: BP 91/61; PULSE 88; RESP 16; TEMP 36.6; O2SAT 98
== END 2025-06-23 21:39 | disposition home or self-care (01) ==
PROVIDERS: Emergency Provider Emergency Medicine Emergency Medical Services; PCP Internal Medicine
DX: F10.129 Alcohol abuse with intoxication, unspecified (principal); R06.02 Shortness of breath; R11.2 Nausea with vomiting, unspecified; E87.6 Hypokalemia; Y90.8 Blood alcohol level of 240 mg/100 ml or more; R94.31 Abnormal electrocardiogram [ECG] [EKG]; Z51.81 Encounter for therapeutic drug level monitoring; Z79.899 Other long term (current) drug therapy
CPT/HCPCS: 36415; 80048; 80053; 80307; 81001; 83735; 85025; 87086; 93005; 96361; 96365; 99284; J3480

== ENCOUNTER → 2025-06-23 18:33 | Outpatient (BNV) | payer OTHER, SELFPAY | PROVIDERS: Emergency Provider Emergency Medicine Emergency Medical Services; PCP Internal Medicine; Visit Provider Internal Medicine | DX: R94.31 Abnormal electrocardiogram [ECG] [EKG] (principal); E87.6 Hypokalemia | CPT/HCPCS: 93010 ==